=== PATIENT | female | born 1945 | race Caucasian/White ===

== ENCOUNTER 2016-11-23 10:44 | Inpatient (IN) ==
--- NOTE | 2016-11-23 09:36 | Discharge Summary ---
Date of Encounter: 11/28/16 Time of Encounter: 13:54 - Discharge Diagnosis (1) Aseptic loosening of prosthetic knee Priority: Primary Status: Acute Qualifiers: Encounter type: subsequent encounter Qualified Code(s): T84.038D - Mechanical loosening of other internal prosthetic joint, subsequent encounter; Z96.659 - Presence of unspecified artificial knee joint (2) Hypertension Priority: Secondary Status: Acute Qualifiers: Hypertension type: unspecified secondary hypertension Qualified Code(s): I15.9 - Secondary hypertension, unspecified; I15 - Secondary hypertension (3) Seizures Priority: Secondary Status: Chronic - Discharge Medications Home Medications: Aspirin Enteric Coated [Aspirin EC] 325 mg PO BID #20 tablet.dr 11/23/16 [Rx] Atorvastatin [Lipitor] 40 mg PO HS 11/23/16 [History] Esomeprazole Magnesium [Nexium] 40 mg PO DAILY 11/23/16 [History] Gabapentin [Neurontin] 300 mg PO TID 11/23/16 [History] Lisinopril [Zestril] 20 mg PO DAILY 11/23/16 [History] Loratadine [Claritin] 10 mg PO DAILY 11/23/16 [History] Metoprolol [Lopressor] 12.5 mg PO BID 11/23/16 [History] Montelukast [Singulair] 10 mg PO DAILY 11/23/16 [History] OxyCODONE Immed Rel [Roxicodone 5 MG] 5 mg PO Q4HR PRN #24 tablet 11/23/16 [Rx] Phenytoin ER [Dilantin ER] 100 mg PO TID 11/23/16 [History] Potassium Chloride [K-Tab ER] 10 meq PO DAILY 11/23/16 [History] Triamterene/HCTZ 37.5/25mg [Dyazide] 1 each PO DAILY 11/23/16 [History] Venlafaxine XR (24 HR) [Effexor XR] 75 mg PO DAILY 11/23/16 [History] Allergies/Adverse Reactions: Allergies acetaminophen [From Darvocet-N 100] Adverse Reaction (Verified 11/23/16 12:21) Weakness propoxyphene [From Darvocet-N 100] Adverse Reaction (Verified 11/23/16 12:21) Weakness Primary care physician: Rich Rojas - Patient Status Disposition: Home Health Service Condition: Good Functional capacity at discharge: uses cane/walker Overall status at discharge: patient is progressing back to baseline - Discharge Instructions Follow Up With: Benjamin Licona CNP [Primary Care Provider] - Mili Last PAC [Physician Digging Machine Operator] - 11/30/16 11:15 am Additional Instructions: Discharge Instructions: Total Knee Replacement Please call [facility] ([phone]), your Primary Care Physician, or report to the Emergency Room if you have any of the following symptoms: Nausea, vomiting, fever greater that 101.5, swelling, chest pain, shortness of breath, increased pain/redness/drainage/odor for your incision site, numbness/ tingling, or any other concerning symptoms. ACTIVITY:Weight-bearing as tolerated. You may progress off support (crutches or walker) as tolerated. MEDICATIONS: Upon discharge resume your home medications. Take all the medications as prescribed. Take a stool softener if taking narcotic pain medications. Stool softeners are only effective if you drink enough fluids. Drink 6-8 glass of water or fluids a day, unless this is not allowed for another health problem. Despite using stool softeners, if you haven't had a bowel movement in 3 days, please switch to a gentle laxative. Gentle laxatives are sold over the counter. You should have a bowel movement within 24 hours, if not call the office. You will be discharged from the hospital with a prescription for pain medication. You are encouraged to decrease the use of narcotic pain medication as tolerated. Should you require a refill, please call the office. [facility] prescribes narcotic pain medication for only 4-6 weeks after surgery. If you require pain medication beyond this time period, you may be referred to your Primary Care Physician or to the Pain Clinic for further evaluation. Plan ahead for refills on pain medication as many narcotics either need to be picked up at the office or mailed. It is best to call 48-72 hours in advance of needing a prescription refill so you don't run out of medication. To help control the post-operative pain, you may take NSAIDs (Aleve,Advil, Motrin, Ibuprofen, Naprosyn) or Tylenol as prescribed on the bottle in addition to the pain medication. ANTICOAGULATION (blood thinners): Continue your Aspirin, Lovenox or Coumadin as prescribed to help prevent a blood clot in the leg or in the lungs. As long as your incision remains dry and you tolerate the NSAIDs (Aleve, Advil, Motrin, ibuprofen, naprosyn), it is OK to use the NSAIDS while you are taking your anticoagulation medication. Should your incision start to drain, stop the NSAID and contact our office. Common symptoms of blood clot in the legs include: localized pain, swelling, calf tenderness, redness or discoloration of the skin. Blood clot in the lung symptoms include: shortness of breath, rapid pulse, sweating, and chest pain that worsens with deep breathing, coughing up blood, lightheadedness, feelings of anxiety. If you experience any of these symptoms notify your physician immediately, go to the emergency room, or if having trouble breathing, call 911. WOUND CARE: Leave the dressing on until followup appointment. Contact home health for a dressing change if it becomes saturated greater than 50%. Do not get the dressing wet at anytime. Wash your hands with antibacterial soap, rinse and dry prior to any wound care. If you have dorothy the visiting nurse or rehab facility can remove the stapes 10-14 days after surgery and place steri- strips across the wound. Leave the steri-strips in place until they fall off on their won. You may let water from the shower run on top of the steri-strips. If you do not have a visiting nurse or rehab facility, you will need to return to the office at 10-14 days for the dorothy to be removed. If you have itching or redness around the dressing call the office. FOLLOW-UP: Please follow up with your surgeon in the orthopedic clinic in 4 weeks from the day of surgery. If you have dorothy that need to be removed, you will need to come back to the office in 10-14 days from the day of surgery. - Hospital Course Hospital course: Ms. Zaman is a 71 year old female The patient had an uneventful postoperative course. They received antibiotics and physical therapy and were discharged in stable condition. There will follow -up in the office in 2 weeks. Aspirin DVT prophylaxis - Time Spent with Patient Total time spent providing and/or coordinating discharge services:
--- NOTE | 2016-11-23 10:57 | Anesthesia Evaluation PreOp ---
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 11/23/16 [Rx] OxyCODONE Immed Rel [Roxicodone 5 MG] 5 mg PO Q4HR PRN #24 tablet 11/23/16 [Rx] Allergies No Known Allergies Allergy (Unverified 11/21/16 10:07) - Meds/Allergy Pre-op Review Medications Reviewed: Yes Allergies Reviewed: Yes Beta Blockers on Current Med List: Yes If Beta Blockers taken, Date/Time (Last Dose taken): 11/23/2016 at 0800 Anesthesia Results - Labs Laboratory Tests 11/21/16 11/21/16 11/21/16 10:07 10:07 10:07 WBC 5.6 Hgb 11.4 L Hct 35.0 L Plt Count 215 PT 11.4 INR 1.1 APTT 25.9 L Sodium 139 Potassium 4.2 BUN 18 Creatinine 1.69 H - Imaging EKG: report reviewed (11/21/2016 SB, low QRS voltage in precordial leads) Anesthesia Exam O2 Sat Height 1.55 m Height 1.55 m Weight 74.843 kg Weight 74.843 kg O2 Sat by Pulse Oximetry 96 Vital Signs Temp Pulse Resp BP Pulse Ox 98.0 F 61 18 110/58 96 11/23/16 11:38 11/23/16 11:38 11/23/16 11:38 11/23/16 11:38 11/23/16 11:38 Height: 5'1'' Weight: 165 lbs NPO (# of Hours): 8 Pain Scale: 0 Pain Scale Used: Numeric (1 - 10) - HEENT Pupil (Motor): EOMI Mallampati: II Teeth: Edentulous Denture Type: Upper: Complete, Lower: Complete Oral Opening: Greater than 3 - MANAGER IMMUNOLOGY LOC: Oriented MANAGER IMMUNOLOGY Motor: Normal RUE, Normal LUE, Normal RLE, Normal LLE, Normal Face MANAGER IMMUNOLOGY Sensory: Normal: RUE, LUE, RLE, LLE, Face - Cardiac Rhythm: Regular Murmur: Systolic - Pulmonary Breath Sounds: bilateral Clear Respiratory Effort: Symmetrical Anesthesia Assess/Plan ASA Score: 2 Modified [place] Scale for Level of Consciousness: Cooperative, oriented, and tranquil Anesthetic Plan: General, Regional Monitoring Plan: Standard Monitors Recovery Plan: PACU
--- NOTE | 2016-11-23 11:07 | History & Physical Report ---
Date of Encounter: 11/23/16 Time of Encounter: 11:07 24 Hour HP Update - Instructions Instructions: If the History and Physical is less than 30 days old and was completed prior to A.M. admission and or procedure and has NOT been updated on calendar day of procedure please complete this update prior to performing procedure. - Update Patient reports changes in Medical Condition: No Changes in examination, assessment, or condition: No Changes in Medication: No Preop tests/diagnostics Reviewed: Yes Surgery Remains Indicated: Yes Consent for Planned Operative Procedure(s) Verified: Yes - Pre-Operative Checklist Preoperative Checklist Indicated: No Prophylactic Antibiotic Ordered: Yes Is VTE Prophylaxis Indicated?: NO
[2016-11-23] MEDS ORDERED: CeFAZolin Pre 2,000 MG/100 ML 2,000 MG/100 ML BAG IVPB ONE (11:26)
[2016-11-23] MEDS ORDERED: Ringers Solution, Lactated 1,000 ML IVC SCH (11:30)
[2016-11-23] MEDS ORDERED: ROPIVACAINE HCL/PF 0.5% 30 ML VIAL ONE (11:44)
[2016-11-23] MEDS ORDERED: Lidocaine -MPF 4% 5 ML AMPUL ONE (12:00)
[2016-11-23] MEDS ORDERED: Ondansetron 4 MG/2 ML VIAL ONE (12:00)
[2016-11-23] MEDS ORDERED: *HR* Propofol 200 MG/20 ML VIAL IVP ONE (12:00)
[2016-11-23] MEDS ORDERED: *HR* FentaNYL (PF) 100 MCG/2 ML VIAL ONE (12:00)
[2016-11-23] MEDS ORDERED: Lidocaine -MPF 2% 2 ML VIAL ONE (12:00)
[2016-11-23] MEDS ORDERED: Dexamethasone 4 MG/ML VIAL ONE (12:00)
[2016-11-23] MEDS ORDERED: *HR* Succinylcholine 200 MG/10 ML VIAL IVP ONE (12:00)
[2016-11-23] MEDS ORDERED: *HR* Midazolam HCl 2 MG/2 ML VIAL ONE (12:00)
--- NOTE | 2016-11-23 12:36 | Anesthesia Procedures ---
Date of Encounter: 11/23/16 Time of Encounter: 12:20 Procedures: Anesthesia - Nerve Block Procedure Date: 11/23/16 Time: 12:20 Allergies/Adv Reactions: tylenol propoxyphene Pre-op Diagnosis: arthritis Surgical Procedure: right total knee arthroplasty Checklist: Correct Patient Identifier, Correct procedure, History checked Correct side: Right Blood Thinner: No Monitor Applied: EKG, BP, Pulse Oximetry Supplemental Oxygen via Nasal Cannula (L/min): 2 Sedation: Versed (mg): 1 Sedation: Fentanyl (mcg): 100 Indication: Post Op Analgesia Pre-op Neuro Deficits: No Block Type: Femoral, Other (ipack ) Catheter placed: No Sterile Technique: Yes Ultrasound used: Yes Anatomy identified: Yes Visual spread of Local: Yes Neuro Stimulation: Yes Nerve Stimulator Range: 0.2 - 0.4 mA Blood on Needle Aspiration: No Smooth Injection of Local: Yes Pain with Injection of Local: No Prep: Chlorhexadine Needle: 22 x 50 mm Stimuplex Local: Ropivacaine (0.5% ropi with 8mg decadron ), Other (bupiv 0.25% ipack ) Volume (cc): 60 Number of Attempts: 1 Complications: None/effective block Vitals: Vital Signs - Last 8 Hours Temp Pulse Resp BP Pulse Ox 11/23/16 12:24 63 16 101/57 100 11/23/16 12:10 64 16 129/71 96 11/23/16 11:38 98.0 F 61 18 110/58 96 11/23/16 11:27 98 F 59 18 110/58 96 Intake and Output 11/22/16 11/23/16 11/23/16 23:59 07:59 15:59 Other: Weight 74.843 kg Patient Weight 11/23/16 23:59 Weight 74.843 kg Comments: per dr. carr
[2016-11-23] MEDS ORDERED: *HR* HYDROmorphone (PF) 1 MG/ML SYRINGE IVP PRN ×2 (12:37→15:07)
[2016-11-23] MEDS ORDERED: Ondansetron 4 MG/2 ML VIAL IVP ONE (12:37)
[2016-11-23] MEDS ORDERED: *HR* Promethazine 25 MG/ML VIAL IVP PRN (12:37)
--- NOTE | 2016-11-23 13:54 | Orthopedic Operative Note ---
Date of procedure: 11/23/16 Pre-op diagnosis: Aseptic loosening right total knee Post-op diagnosis: same Procedure: Procedure: Right revision total knee Estimated blood loss: 400 cc Hardware: Arthrex 3 femur tibia size 3, 12 x 50 stem, 18PS Lise Exam Under anesthesia: Loss of full extension 20 degrees full flexion Procedural Notes: Loosening of femoral and tibial components Operative procedure: The patient was brought to the operating room and placed on the operating room table. After general anesthesia was administered the operative knee was examined. Findings were noted in the exam under anesthesia. The operative extremity was prepped and draped in sterile surgical fashion. The patient received IV antibiotics prior to skin incision. A standard midline incision was made centered over the patella. The incision was made through the skin and subcutaneous tissue through the old incision. A medial parapatellar tendon approach was performed. Care was taken to preserve tissue along the medial aspect of the patella. And to protect the patella tendon. The deep MCL was released off the medial tibia. The infra patella fat pad was excised. Cultures were obtained as well as Gram stain. The knee was brought into flexion the tibial poly-was removed. The interface between the femoral component and the patient's femur was disrupted with an osteotome and oscillating saw. This was done with minimal effort was consistent with a loose femur. Attention was then turned to the tibial component. The tibial component was loose and removed with an osteotome without any bone loss. Tibia was recut just below the level of the cement mantle. The tibia was prepared first sized to a 3 reamed to a 112x50 stem. The finishing punch was seated. Trial had good fit and fixation. The entry hole was made for the entry guide for the femur set in 6 degrees of valgus. Distal femoral cut was made sized to a 3 finishing guide was seated lug holes were drilled and trochlear was reamed. Trial reduction revealed full extension and full flexion no varus valgus instability with an 18 PS Lise. Trial components removed knee sat for 2 minutes with a Betadine saline solution. It was irrigated out with pulse irrigation. Components were assembled on the back table. The tibia cemented. Followed by the femur, The 18 PS Lise was seated and secure. The had full flexion and full extension and excellent patella tracking no varus valgus instability. After the cement hardened the knee was irrigated out again. The knee was taken through a range of motion had excellent patella tracking. The extensor mechanism was closed with a running #2 Fiberwire suture and a running #2 PDS suture. The deep tissue was irrigated and closed deep with #1 PDS suture superficially with 0 PDS suture. The skin was closed with Dermabond and skin dorothy. The patient was placed in a sterile dressing and postoperative brace. They were extubated and transferred to recovery room in stable condition. Anesthesia: GETA Surgeon: Musa Lizama Condition: stable Disposition: PACU
[2016-11-23 14:28] LABS: Hematocrit 34.9 % (35.3-44.9); Hemoglobin 11.5 g/dL (11.5-15.4)
--- NOTE | 2016-11-23 14:30 | Anesthesia Evaluation Post Op ---
Date of Encounter: 11/23/16 Time of Encounter: 14:29 - Vital Signs Vital Signs: Vital Signs/O2 Sat, Most Current Temp Pulse Resp BP Pulse Ox 97.1 F L 59 14 152/73 99 11/23/16 13:56 11/23/16 14:16 11/23/16 14:16 11/23/16 14:16 11/23/16 14:16 - Lungs Lungs: Clear Ascult./Percussion - Airway Airway: Non-obstructed - Cardiovascular Regular Rate - Mental Status Mental Status: Alert & Oriented, Answers Appropriately - Pain Pain Scale: 3 Pain Scale used: Numeric (1 - 10) - Nausea Vomiting Nausea Vomiting: Not Present - Hydration Hydration: Tolerates oral liquids, Has not voided - Discharge PostOp Status: Transfer Patient to floor
[2016-11-23] MEDS ORDERED: Sennosides 8.6 MG TABLET PO PRN (15:07)
[2016-11-23] MEDS ORDERED: MOM Conc 10 ML UD.LIQ PO PRN (15:07)
[2016-11-23] MEDS ORDERED: Temazepam 15 MG CAPSULE PO PRN (15:07)
[2016-11-23] MEDS ORDERED: *HR* OxyCODONE Immed Rel 5 MG TABLET PO PRN (15:07)
[2016-11-23] MEDS ORDERED: Naloxone 0.4 MG/ML INJ IVP PRN (15:07)
[2016-11-23] MEDS: *HR* OxyCODONE Immed Rel 5 MG TABLET PO PRN (15:28)
[2016-11-23] MEDS: ceFAZolin 2,000 MG in D5% in Water 100 ML IVPB SCH ×2 (15:53→23:35)
[2016-11-23] MEDS: Ringers Solution, Lactated 1,000 ML IVC SCH (17:34)
[2016-11-23] MEDS: *HR* Enoxaparin 30 MG/0.3 ML SYRINGE SQ SCH (17:34)
[2016-11-23] MEDS ORDERED: *HR* Enoxaparin 30 MG/0.3 ML SYRINGE SQ SCH (18:00)
[2016-11-23] MEDS: Gabapentin 300 MG CAPSULE PO SCH (23:30)
[2016-11-24 04:45] LABS: Hematocrit 27.3 % (35.3-44.9)
[2016-11-24 04:47] LABS: Hemoglobin 9.3 g/dL (11.5-15.4)
[2016-11-24 05:11] LABS: Calcium 8.1 mg/dL (8.6-10.8); Potassium 4.4 mEq/L (3.5-4.5)
[2016-11-24] MEDS: *HR* OxyCODONE Immed Rel 5 MG TABLET PO PRN ×3 (05:14→22:27)
[2016-11-24] MEDS: Ringers Solution, Lactated 1,000 ML IVC SCH (06:20)
[2016-11-24] MEDS ORDERED: Venlafaxine XR (24 HR) 75 MG CAP.ER.24H PO SCH (09:00)
[2016-11-24] MEDS: Gabapentin 300 MG CAPSULE PO SCH ×3 (10:03→20:21)
[2016-11-24] MEDS: Lisinopril 20 MG TABLET PO SCH (10:03)
[2016-11-24] MEDS: Loratadine 10 MG TABLET PO SCH (10:03)
[2016-11-24] MEDS: Venlafaxine XR (24 HR) 75 MG CAP.ER.24H PO SCH (10:04)
--- NOTE | 2016-11-24 10:29 | Orthopedics Progress Note ---
Date of Encounter: 11/24/16 Time of Encounter: 10:28 Subjective Interval history: S: No complaints. Pain well controlled. O: Afeb, VSS Right knee dressing is clean, dry, intact. NV intact distally. Calf soft. A: Post op day 1 after revision right total knee arthroplasty P: Resume post op care Objective Vital signs: Vital Signs Temp Pulse Resp BP Pulse Ox 11/24/16 07:05 97.9 F 68 18 93/47 94 11/24/16 05:00 70 18 105/65 95 11/24/16 01:00 98.9 F 69 16 150/73 98 11/23/16 20:12 97.9 F 65 14 115/68 97 11/23/16 17:42 97.4 F L 68 16 133/68 99 11/23/16 16:48 97.7 F 59 16 124/69 99 11/23/16 15:54 97.7 F 60 15 161/80 97 11/23/16 15:20 95.4 F L 58 14 144/58 98 11/23/16 14:26 97.1 F L 60 16 157/80 400 11/23/16 14:16 59 14 152/73 99 11/23/16 14:06 55 16 145/74 100 11/23/16 13:56 97.1 F L 60 16 140/79 100 11/23/16 12:24 63 16 101/57 100 11/23/16 12:10 64 16 129/71 96 11/23/16 11:38 98.0 F 61 18 110/58 96 11/23/16 11:27 98 F 59 18 110/58 96 Intake and Output 11/23/16 11/24/16 11/24/16 23:59 07:59 15:59 Intake Total 100 / 100 1120 / 1120 Output Total 0 / 0 Balance 100 / 100 1120 / 1120 Intake: IV Fluids 100 / 100 1000 / 1000 Lactated Ringers 1,000 ML 1000 / 1000 @ 75 mls/hr IVC .[id number] [facility] Rx#:[id number] Ancef 2,000 MG In 100 / 100 Dextrose 5% 100 ML @ 200 mls/hr IVPB Q8HR [facility] Rx#: [id number] Oral 120 / 120 Output: Urine 0 / 0 Other: # Voids 2 - Labs CBC & BMP: 11/24/16 04:31 11/24/16 04:31 Labs: Abnormal lab results Hgb 9.3 g/dL (11.5-15.4) L D 11/24/16 04:31 Hct 27.3 % (35.3-44.9) L 11/24/16 04:31 Creatinine 1.58 mg/dL (0.57-1.11) H 11/24/16 04:31 Est GFR ( Amer) 39 (> 60) L 11/24/16 04:31 Est GFR (Non-Af Amer) 32 (> 60) L 11/24/16 04:31 Glucose 101 mg/dL (70-99) H 11/24/16 04:31 Calcium 8.1 mg/dL (8.6-10.8) L 11/24/16 04:31 - VTE Documentation of Mechanical Device: Venous foot pump, device Consult Discharge Plan - Plan Referrals: Benjamin Licona CNP [Primary Care Provider] -
[2016-11-24] MEDS: *HR* Enoxaparin 30 MG/0.3 ML SYRINGE SQ SCH (16:39)
[2016-11-25] MEDS: *HR* OxyCODONE Immed Rel 5 MG TABLET PO PRN ×2 (02:46→19:58)
[2016-11-25] MEDS: Ondansetron 4 MG/2 ML VIAL IVP PRN ×2 (02:46→09:18)
[2016-11-25 04:26] LABS: Hematocrit 28.6 % (35.3-44.9); Hemoglobin 9.4 g/dL (11.5-15.4)
[2016-11-25 04:55] LABS: Calcium 8.5 mg/dL (8.6-10.8); Potassium 3.7 mEq/L (3.5-4.5)
[2016-11-25] MEDS: Venlafaxine XR (24 HR) 75 MG CAP.ER.24H PO SCH (09:18)
[2016-11-25] MEDS: Gabapentin 300 MG CAPSULE PO SCH ×3 (09:18→19:58)
[2016-11-25] MEDS: Loratadine 10 MG TABLET PO SCH (09:18)
[2016-11-25] MEDS: Lisinopril 20 MG TABLET PO SCH (09:19)
--- NOTE | 2016-11-25 10:57 | Orthopedics Progress Note ---
Date of Encounter: 11/25/16 Time of Encounter: 10:56 Subjective Interval history: S: No complaints. Pain well controlled. O: Afeb, VSS Right knee dressing is clean, dry, intact. NV intact distally. Calf soft. A: Post op day 2 after revision right total knee arthroplasty P: Resume post op care Objective Vital signs: Vital Signs Temp Pulse Resp BP Pulse Ox 11/25/16 06:53 98.7 F 79 18 151/75 93 11/25/16 01:06 98.8 F 79 16 156/82 92 11/24/16 20:00 98.7 F 97 20 130/78 97 11/24/16 15:45 98.7 F 88 16 108/64 97 11/24/16 11:31 98.2 F 86 18 111/69 96 Intake and Output 11/24/16 11/25/16 11/25/16 23:59 07:59 15:59 Intake Total 1170 / 1170 300 / 300 Output Total 1500 / 1500 Balance -330 / -330 300 / 300 Intake: IV Fluids 850 / 850 Lactated Ringers 1,000 ML 850 / 850 @ 75 mls/hr IVC .[id number] [facility] Rx#:[id number] Oral 320 / 320 300 / 300 Output: Urine 1500 / 1500 Other: Meal Dinner Percent of Meal Consumed 100% Stool Size Smear Stool Consistency soft # Voids 2 1 # Bowel Movements 1 - Labs CBC & BMP: 11/25/16 03:54 11/25/16 03:54 Labs: Abnormal lab results Hgb 9.4 g/dL (11.5-15.4) L 11/25/16 03:54 Hct 28.6 % (35.3-44.9) L 11/25/16 03:54 Est GFR (Non-Af Amer) 49 (> 60) L 11/25/16 03:54 Glucose 121 mg/dL (70-99) H 11/25/16 03:54 Calcium 8.5 mg/dL (8.6-10.8) L 11/25/16 03:54 - VTE Documentation of Mechanical Device: Venous foot pump, device Consult Discharge Plan - Plan Referrals: Benjamin Licona CNP [Primary Care Provider] -
[2016-11-25] MEDS: *HR* Enoxaparin 30 MG/0.3 ML SYRINGE SQ SCH (17:54)
[2016-11-26] MEDS: *HR* OxyCODONE Immed Rel 5 MG TABLET PO PRN (05:03)
[2016-11-26] MEDS: Lisinopril 20 MG TABLET PO SCH (09:10)
[2016-11-26 09:34] LABS: Hematocrit 28.1 % (35.3-44.9); Hemoglobin 9.1 g/dL (11.5-15.4)
[2016-11-26] MEDS: Gabapentin 300 MG CAPSULE PO SCH (10:09)
[2016-11-26] MEDS: Loratadine 10 MG TABLET PO SCH (10:09)
[2016-11-26] MEDS: Venlafaxine XR (24 HR) 75 MG CAP.ER.24H PO SCH (10:09)
[2016-11-26 11:48] VITALS: BP 109/61
== END 2016-11-26 14:09 | disposition home health service (06) | DRG 468 ==
LOC: SAMDAY 10:44 → 3NENU 14:43
PROVIDERS: ADMIT Orthopaedic Surgery; ATTEND Orthopaedic Surgery

== ENCOUNTER 2018-03-03 09:06 | Inpatient (IN) ==
--- NOTE | 2018-03-02 21:34 | Discharge Summary ---
<Musa Lizama - Last Filed: 03/03/18 11:08> Orders not resulted at time of discharge: Pending orders 03/03/18 00:01 XR knee LT limited 1-2V [XR] Routine H/H [Hemoglobin and Hematocrit] [HEME] Routine 03/03/18 07:59 US anesthesia pain block [US] Routine Date of Encounter: 03/03/18 - Discharge Diagnosis (1) Arthritis of knee, left Priority: Primary Status: Chronic (2) Status post total knee replacement, left Priority: Primary Status: Acute (3) Decreased GFR Priority: Secondary Status: Chronic (4) HLD (hyperlipidemia) Priority: Secondary Status: Chronic Qualifiers: Hyperlipidemia type: mixed hyperlipidemia Qualified Code(s): E78.2 - Mixed hyperlipidemia (5) Hypertension Priority: Secondary Status: Chronic Qualifiers: Hypertension type: essential hypertension Qualified Code(s): I10 - Essential (primary) hypertension (6) YADY (obstructive sleep apnea) Priority: Secondary Status: Chronic (7) Seizure disorder Priority: Secondary Status: Chronic - Hospital Course Hospital course: Ms. Zaman is a 73 year old female - Time Spent with Patient Total time spent providing and/or coordinating discharge services: - Discharge Medications Home Medications: Atorvastatin [Lipitor] 40 mg PO HS 11/23/16 [History] Esomeprazole Magnesium [Nexium] 40 mg PO DAILY 11/23/16 [History] Gabapentin [Neurontin] 300 mg PO TID 11/23/16 [History] Lisinopril [Zestril] 20 mg PO DAILY 11/23/16 [History] Loratadine [Claritin] 10 mg PO DAILY 11/23/16 [History] Metoprolol [Lopressor] 12.5 mg PO BID 11/23/16 [History] Montelukast [Singulair] 10 mg PO DAILY 11/23/16 [History] Phenytoin ER [Dilantin ER] 100 mg PO TID 11/23/16 [History] Potassium Chloride [K-Tab ER] 20 meq PO DAILY 11/23/16 [History] Triamterene/HCTZ 37.5/25mg [Dyazide] 1 each PO DAILY 11/23/16 [History] Venlafaxine XR (24 HR) [Effexor XR] 75 mg PO DAILY 11/23/16 [History] Aspirin Enteric Coated [Aspirin EC] 325 mg PO BID #20 tablet. 03/02/18 [Rx] OxyCODONE Immed Rel [Roxicodone 5 MG] 5 mg PO Q6H PRN 7 Days #28 tablet [Rx] Allopurinol [Zyloprim 100 MG] 100 mg PO DAILY 03/03/18 [History] Aspirin [Lo-Dose Aspirin EC] 81 mg PO DAILY 03/03/18 [History] Cholecalciferol (D-3) [Vitamin D] 1,000 unit PO DAILY 03/03/18 [History] Allergies/Adverse Reactions: 3 Allergy/AdvReac Type Severity Reaction Status Date / Time acetaminophen AdvReac Weakness Verified 03/03/18 09:55 [From Darvocet-N 100] propoxyphene AdvReac Weakness Verified 03/03/18 09:55 [From Darvocet-N 100] Primary care physician: Enmanuel Licona CNP - Patient Status Disposition: Home Health Service Condition: Good - Discharge Instructions Instructions: Total Knee Replacement (DC), Precautions after Total Joint Replacement Surgery (DC) Follow Up With: Benjamin Licona CNP [Primary Care Provider] - <Laila Combs - Last Filed: 03/05/18 12:45> - NOTES TO OUTPATIENT PROVIDER Notes to Outpatient Provider: Will need to have potassium rechecked in 1 week. Orders not resulted at time of discharge: Pending orders 03/03/18 07:59 US anesthesia pain block [US] Routine Date of Encounter: 03/05/18 Time of Encounter: 12:30 - Discharge Diagnosis (1) Status post total knee replacement, left Priority: Primary Status: Acute (2) Aseptic loosening of prosthetic knee Priority: Secondary Status: Acute Qualifiers: Encounter type: subsequent encounter Qualified Code(s): T84.038D - Mechanical loosening of other internal prosthetic joint, subsequent encounter; Z96.659 - Presence of unspecified artificial knee joint (3) Arthritis of knee, left Priority: Secondary Status: Chronic (4) Decreased GFR Priority: Secondary Status: Chronic (5) HLD (hyperlipidemia) Priority: Secondary Status: Chronic Qualifiers: Hyperlipidemia type: mixed hyperlipidemia Qualified Code(s): E78.2 - Mixed hyperlipidemia (6) Hypertension Priority: Secondary Status: Chronic Qualifiers: Hypertension type: essential hypertension Qualified Code(s): I10 - Essential (primary) hypertension (7) YADY (obstructive sleep apnea) Priority: Secondary Status: Chronic (8) Seizure disorder Priority: Secondary Status: Chronic (9) Seizures Priority: Secondary Status: Chronic (10) Acute blood loss anemia Priority: Secondary Status: Acute (11) Hypokalemia Priority: Secondary Status: Acute - Hospital Course Hospital course: Ms. Zaman is a 73 year old female - Time Spent with Patient Total time spent providing and/or coordinating discharge services: Date of admission: 03/03/18 14:34 Primary care physician: Enmanuel Licona CNP Consults: 03/03/18 14:07 Consult to Occupational Therapy [CONS] Routine Comment: Evaluate, develop and implement POC Reason for Consult: post knee surgery Does patient have active BEDREST order?: No Is patient medically & hemodynamically stable?: Yes Consult to Orthopedic Navigator [CONS] [CONS] Routine Consult to Physical Therapy [CONS] Routine Comment: Evaluate, develop and impliment POC Reason for Consult: post knee surgery Does patient have active BEDREST order?: No Is patient medically & hemodynamically stable?: Yes Consult to Residential Sales Executive [CONS] Routine Reason for SW Consult: post op joint replacement RT Post Op Consult [CONS] Routine Labs on day of discharge: Labs from last 24 hours 03/05/18 03/05/18 03/03/18 01:48 01:48 18:11 Hgb 9.6 L D Hct 27.6 L Sodium 138 Potassium 3.0 L Chloride 109 H Carbon Dioxide 23 BUN 15 Creatinine 1.12 Est GFR ( Amer) 58 L Est GFR (Non-Af Amer) 48 L BUN/Creatinine Ratio 13 Glucose 119 H Calculated Osmolality 288 Calcium 7.9 L Blood Type B POSITIVE Antibody Screen NEGATIVE Crossmatch See Detail - Impressions ITS Impressions Knee X-Ray 03/03/18 00:01 IMPRESSION: Postsurgical changes involving a left total joint knee replacement. D/ / Zeyad Delgadillo MD / Zeyad Delgadillo MD Interpreting Provider: Zeyad Delgadillo MD <Mili Last L - Last Filed: 03/05/18 15:46> Date of Encounter: 03/05/18 Time of Encounter: 15:46 - Discharge Diagnosis (1) Arthritis of knee, left Priority: Primary Status: Chronic (2) Status post total knee replacement, left Priority: Primary Status: Acute (3) YADY (obstructive sleep apnea) Priority: Secondary Status: Chronic (4) Seizure disorder Priority: Secondary Status: Chronic (5) HLD (hyperlipidemia) Priority: Secondary Status: Chronic Qualifiers: Hyperlipidemia type: mixed hyperlipidemia Qualified Code(s): E78.2 - Mixed hyperlipidemia (6) Decreased GFR Priority: Secondary Status: Chronic (7) Hypertension Priority: Secondary Status: Chronic Qualifiers: Hypertension type: essential hypertension Qualified Code(s): I10 - Essential (primary) hypertension - Hospital Course Hospital course: Ms. Zaman is a 73 year old female - Time Spent with Patient Total time spent providing and/or coordinating discharge services: Primary care physician: Enmanuel Licona CNP - Patient Status Functional capacity at discharge: uses cane/walker Overall status at discharge: patient is back to baseline
[2018-03-03] MEDS ORDERED: CeFAZolin Syr 2,000MG/20 ML 2,000 MG/20 ML SYRINGE IVPB ONE (09:36)
--- NOTE | 2018-03-03 09:39 | History & Physical Report ---
Date of Encounter: 03/03/18 Time of Encounter: 09:39 24 Hour HP Update - Instructions Instructions: If the History and Physical is less than 30 days old and was completed prior to A.M. admission and or procedure and has NOT been updated on calendar day of procedure please complete this update prior to performing procedure. - Update Patient reports changes in Medical Condition: No Changes in examination, assessment, or condition: No Changes in Medication: No Preop tests/diagnostics Reviewed: Yes Surgery Remains Indicated: Yes Consent for Planned Operative Procedure(s) Verified: Yes - Pre-Operative Checklist Preoperative Checklist Indicated: No Prophylactic Antibiotic Ordered: Yes Is VTE Prophylaxis Indicated?: Yes
[2018-03-03] MEDS ORDERED: Ringers Solution, Lactated 1,000 ML IVC SCH (09:45)
[2018-03-03] MEDS ORDERED: *HR* Succinylcholine 200 MG/10 ML VIAL IVP ONE (10:24)
[2018-03-03] MEDS ORDERED: Ketorolac 30 MG/ML VIAL ONE (10:24)
[2018-03-03] MEDS ORDERED: *HR* Midazolam HCl 2 MG/2 ML VIAL ONE (10:24)
[2018-03-03] MEDS ORDERED: *HR* FentaNYL (PF) 100 MCG/2 ML VIAL ONE (10:24)
[2018-03-03] MEDS ORDERED: *HR* Propofol 200 MG/20 ML VIAL IVP ONE (10:24)
[2018-03-03] MEDS ORDERED: Dexamethasone 4 MG/ML VIAL ONE (10:24)
[2018-03-03] MEDS ORDERED: Lidocaine -MPF 4% 5 ML AMPUL ONE (10:24)
[2018-03-03] MEDS ORDERED: Ondansetron 4 MG/2 ML VIAL ONE (10:24)
[2018-03-03] MEDS ORDERED: Lidocaine -MPF 2% 2 ML VIAL ONE (10:24)
--- NOTE | 2018-03-03 10:30 | Anesthesia Evaluation PreOp ---
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: Seizures (Last seizure years ago) Other Medical History: Renal (CKD2 vs CKD3), GERD (Controlled), Other (Anemia, unknown cause) Anesthesia History: No Prior Anesthetic Complications, Past Anesthesia Alcohol Use: none Drug use: none Medications and Allergies Atorvastatin [Lipitor] 40 mg PO HS 11/23/16 [History] Esomeprazole Magnesium [Nexium] 40 mg PO DAILY 11/23/16 [History] Gabapentin [Neurontin] 300 mg PO TID 11/23/16 [History] Lisinopril [Zestril] 20 mg PO DAILY 11/23/16 [History] Loratadine [Claritin] 10 mg PO DAILY 11/23/16 [History] Metoprolol [Lopressor] 12.5 mg PO BID 11/23/16 [History] Montelukast [Singulair] 10 mg PO DAILY 11/23/16 [History] Phenytoin ER [Dilantin ER] 100 mg PO TID 11/23/16 [History] Potassium Chloride [K-Tab ER] 20 meq PO DAILY 11/23/16 [History] Triamterene/HCTZ 37.5/25mg [Dyazide] 1 each PO DAILY 11/23/16 [History] Venlafaxine XR (24 HR) [Effexor XR] 75 mg PO DAILY 11/23/16 [History] Aspirin Enteric Coated [Aspirin EC] 325 mg PO BID #20 tablet. 03/02/18 [Rx] OxyCODONE Immed Rel [Roxicodone 5 MG] 5 mg PO Q6H PRN 7 Days #28 tablet [Rx] Allopurinol [Zyloprim 100 MG] 100 mg PO DAILY 03/03/18 [History] Aspirin [Lo-Dose Aspirin EC] 81 mg PO DAILY 03/03/18 [History] Cholecalciferol (D-3) [Vitamin D] 1,000 unit PO DAILY 03/03/18 [History] 3 Allergy/AdvReac Type Severity Reaction Status Date / Time acetaminophen AdvReac Weakness Verified 03/03/18 09:55 [From Darvocet-N 100] propoxyphene AdvReac Weakness Verified 03/03/18 09:55 [From Darvocet-N 100] - Meds/Allergy Pre-op Review Medications Reviewed: Yes Allergies Reviewed: Yes Beta Blockers on Current Med List: Yes If Beta Blockers taken, Date/Time (Last Dose taken): 2100 Anesthesia Results - Labs Laboratory Tests 02/27/18 02/27/18 02/27/18 15:45 15:45 15:45 Hgb 10.8 L Hct 32.8 L Plt Count 198 PT 11.4 INR 1.0 APTT 29.0 Sodium 138 Potassium 3.6 Chloride 109 H Carbon Dioxide 23 Creatinine 1.45 H Est GFR (Non-Af Amer) 35 L - Imaging EKG: report reviewed (SINUS BRADYCARDIA LOW QRS VOLTAGE IN PRECORDIAL LEADS INCOMPLETE RIGHT BUNDLE BRANCH BLOCK POSSIBLE ANTERIOR MYOCARDIAL INFARCTION, PROBABLY OLD) Anesthesia Exam O2 Sat Height 1.5 m Weight 64.41 kg BMI 29 Vital Signs Temp Pulse Resp BP Pulse Ox 98.6 F 62 18 120/67 98 03/03/18 09:39 03/03/18 09:39 03/03/18 09:39 03/03/18 09:39 03/03/18 09:39 NPO (# of Hours): 5.5 hrs (black coffee at 0500) - HEENT Pupil (Motor): Pupils equal Mallampati: II Teeth: Edentulous Denture Type: Upper: Complete, Lower: Complete Oral Opening: Greater than 3 - PLASTIC EYE TECHNICIAN LOC: Oriented PLASTIC EYE TECHNICIAN Motor: Normal RUE, Normal LUE, Normal RLE, Normal LLE, Normal Face - Cardiac Rhythm: Regular - Pulmonary Breath Sounds: bilateral Clear Respiratory Effort: Symmetrical - Additional Findings Right lower extremity edema, no pain on palpation, no pain on foot flexion. Anesthesia Assess/Plan ASA Score: 4 Modified Lizzie Scale for Level of Consciousness: Cooperative, oriented, and tranquil Anesthetic Plan: General, Regional (For postoperatve pain control) Monitoring Plan: Standard Monitors Recovery Plan: PACU
[2018-03-03] MEDS ORDERED: ROPIVACAINE HCL/PF 0.5% 30 ML VIAL ONE (10:35)
[2018-03-03] MEDS ORDERED: Bupivacaine/Clonidine Syringe 1 EACH SYRINGE ONE (10:39)
[2018-03-03] MEDS ORDERED: Ethanol\\Acetic Acid\\Na Ace\\Ben 1,000 ML IRRIG.SOLN IR ONE (11:01)
[2018-03-03] MEDS ORDERED: EPHEDrine 50 MG/ML VIAL ONE (11:19)
[2018-03-03] MEDS ORDERED: *HR* Promethazine 25 MG/ML VIAL IVP PRN (11:46)
[2018-03-03] MEDS ORDERED: *HR* HYDROmorphone (PF) 1 MG/ML SYRINGE IVP PRN (11:46)
[2018-03-03] MEDS ORDERED: *HR* Labetalol 20 MG/4 ML SYRINGE IVP PRN (11:46)
[2018-03-03] MEDS ORDERED: Albuterol 2.5 MG/3 ML NEBULIZER IH ONE (11:46)
--- NOTE | 2018-03-03 11:46 | Anesthesia Procedures ---
Date of Encounter: 03/03/18 Time of Encounter: 11:00 Procedures: Anesthesia - Nerve Block Procedure Date: 03/03/18 Time: 11:00 Allergies/Adv Reactions: DARVOCET Pre-op Diagnosis: LEFT TKA ARTHRITIS Surgical Procedure: LEFT TKA Checklist: Correct Patient Identifier, Correct procedure, History checked Correct side: Left Blood Thinner: No Monitor Applied: EKG, BP, Pulse Oximetry Supplemental Oxygen via Nasal Cannula (L/min): 1 Sedation: Versed (mg): 1 Sedation: Fentanyl (mcg): 100 Indication: Post Op Analgesia Pre-op Neuro Deficits: No Block Type: Femoral (IPACK ) Catheter placed: No Sterile Technique: Yes Ultrasound used: Yes Anatomy identified: Yes Visual spread of Local: Yes Neuro Stimulation: Yes Nerve Stimulator Range: 0.2 - 0.4 mA Blood on Needle Aspiration: No Smooth Injection of Local: Yes Pain with Injection of Local: No Prep: Chlorhexadine Needle: 21 x 100 mm Stimuplex Local: 0.25% Bupivicaine w/Clonidine 20 mcg/cc (IPACK ), Ropivacaine Volume (cc): 30 Number of Attempts: 1 Complications: None/effective block Vitals: Vital Signs - Last 8 Hours Temp Pulse Resp BP Pulse Ox 03/03/18 11:07 59 16 118/62 97 03/03/18 10:53 60 18 136/87 100 03/03/18 09:39 98.6 F 62 18 120/67 98 Intake and Output 03/02/18 03/03/18 03/03/18 23:59 07:59 15:59 Other: Weight 64.41 kg Patient Weight 03/03/18 23:59 Weight 64.41 kg Comments: PER DR. JACOBSON VSS
--- NOTE | 2018-03-03 12:04 | Orthopedic Operative Note ---
Date of procedure: 03/03/18 Pre-op diagnosis: Left knee arthritis Post-op diagnosis: same Procedure: Procedure: Left robotic-assisted Total knee replacement Estimated blood loss: 200 cc Hardware: Metal and polyethylene replacement. [place] Femur: 2 Tibia: 2 TS insert: 11 Patella: 36 Exam Under anesthesia: 7 degree flexion contracture 0 degree varus valgus as calculated by the robot full flexion and no instability Procedural Notes: Grade 4 arthritic changes all 3 compartments. Operative procedure: The patient was brought to the operating room and placed on the operating room table. After general anesthesia was administered the operative knee was examined. Findings were noted in the exam under anesthesia. The operative extremity was prepped and draped in sterile surgical fashion. The patient received IV antibiotics prior to skin incision. A standard midline incision was made centered over the patella. The incision was made through the skin and subcutaneous tissue. A medial parapatellar tendon approach was performed. Care was taken to preserve tissue along the medial aspect of the patella. And to protect the patella tendon. The deep MCL was released off the medial tibia. The infra patella fat pad was excised. The patella was everted and cut was made at the level of the insertion of the quadriceps and patella tendon. The patella was sized to a 36 the guide was seated and the lug holes are drilled. Knee was brought into flexion. Patient noted to have grade 4 arthritic changes all 3 compartments. Steinmann pins were placed in the tibia and the femur for the tibial and femoral arrays respectively. Checkpoints were also placed in the tibia and the femur for calculation purposes. The knee including the femur and the tibial registered. Osteophytes, ACL and PCL were excised at this point. Extension and flexion were assessed with a valgus stress components were adjusted on the computer to balance the knee. Femoral cuts were made first with robotic assistance, these included the anterior cut posterior cuts chamfer cuts. Tibial cut was then performed with robotic assistance as well. Bone fragments were removed, as well as the medial and lateral meniscus. The size 2 femoral guide was seated box cut was made lug holes are drilled. The size 2 tibial tray was seated and prepared with the fin cutter. Trial reduction with the 11 TS Lise revealed extension of 0 degree and 0 degree varus valgus full flexion. No varus valgus instability. Trial reduction revealed excellent patella tracking. All trial components were removed all bony surfaces were irrigated. The Tibia was seated followed by the femur, The Lise size 11 was seated and secured patella. Patient had similar findings for motion and stability. The knee was closed by the PA. The knee was then irrigated out with 2 L of pulse irrigation. The extensor mechanism was closed with #2 FiberWire suture and #2 PDS suture. The subcutaneous tissue was then irrigated and closed deep with #1 PDS suture superficially with 0 PDS suture and skin was closed with zip tie The patient was then placed in a sterile dressing and a postoperative brace extubated and transferred to recovery room in stable condition. Anesthesia: GETA Surgeon: Musa Lizama Was there an administrative personal assistant present: Yes Aircraft Inspector: Mili Last Estimated blood loss (cc): 200 Condition: stable Disposition: PACU
[2018-03-03] MEDS ORDERED: MOM Conc 10 ML UD.LIQ PO PRN (14:07)
[2018-03-03] MEDS ORDERED: traMADol 50 MG TABLET PO PRN (14:07)
[2018-03-03] MEDS ORDERED: Ondansetron 4 MG/2 ML VIAL IVP PRN (14:07)
[2018-03-03] MEDS ORDERED: Temazepam 15 MG CAPSULE PO PRN (14:07)
[2018-03-03] MEDS ORDERED: Naloxone 0.4 MG/ML INJ IVP PRN (14:07)
[2018-03-03] MEDS ORDERED: Sennosides 8.6 MG TABLET PO PRN (14:07)
[2018-03-03] MEDS ORDERED: *HR* OxyCODONE Immed Rel 5 MG TABLET PO PRN (14:07)
[2018-03-03] MEDS: *HR* OxyCODONE/APAP 5/325 TABLET PO PRN (14:41)
[2018-03-03 14:54] LABS: Hematocrit 32.6 % (35.3-44.9); Hemoglobin 10.9 g/dL (11.5-15.4)
--- NOTE | 2018-03-03 17:13 | Anesthesia Evaluation Post Op ---
Date of Encounter: 03/03/18 Time of Encounter: 12:59 Notes: Patient's vital signs have been reviewed. Patient is stable postoperatively and has adequately recovered from anesthesia. Patient is determined to have stable airway patency and respiratory function including respiratory rate and oxygen saturation. Patient has a stable heart rate, blood pressure and adequate hydration. Patients mental status is acceptable. Patients temperature is appropriate. Pain and nausea are adequately controlled. - Discharge PostOp Status: Transfer Patient to floor
[2018-03-03] MEDS ORDERED: 0.9 % Sodium Chloride 500 ML IVC ONE (17:21)
[2018-03-03] MEDS: Gabapentin 300 MG CAPSULE PO SCH ×2 (17:39→20:03)
[2018-03-03] MEDS ORDERED: *HR* Enoxaparin 30 MG/0.3 ML SYRINGE SQ SCH (18:00)
[2018-03-03] MEDS: *HR* Enoxaparin 30 MG/0.3 ML SYRINGE SQ SCH (18:57)
[2018-03-04 00:51] LABS: Hematocrit 23.5 % (35.3-44.9)
[2018-03-04 00:53] LABS: Hemoglobin 7.9 g/dL (11.5-15.4)
[2018-03-04 01:16] LABS: Calcium 7.7 mg/dL (8.6-10.3); Potassium 3.3 mEq/L (3.5-5.1)
[2018-03-04] MEDS: Ringers Solution, Lactated 1,000 ML IVC SCH ×3 (04:50→16:22)
--- NOTE | 2018-03-04 06:43 | Orthopedics Progress Note ---
Date of Encounter: 03/04/18 Time of Encounter: 06:43 - Assessment and Plan (1) Arthritis of knee, left Current Visit: No Status: Chronic (2) Status post total knee replacement, left Current Visit: No Status: Acute (3) Decreased GFR Current Visit: No Status: Chronic (4) HLD (hyperlipidemia) Current Visit: No Status: Chronic Qualifiers: Hyperlipidemia type: mixed hyperlipidemia Qualified Code(s): E78.2 - Mixed hyperlipidemia (5) Hypertension Current Visit: No Status: Chronic Qualifiers: Hypertension type: essential hypertension Qualified Code(s): I10 - Essential (primary) hypertension (6) YADY (obstructive sleep apnea) Current Visit: No Status: Chronic (7) Seizure disorder Current Visit: No Status: Chronic Subjective Interval history: Patient was seen this morning doing well without complaints. Afebrile vital signs stable. Operative extremity: Neurovascularly intact Dressing clean dry and intact Calves nontender Assessment and plan: Continue with postoperative care Hematocrit 23 transfuse 2 units Objective Vital signs: Vital Signs Temp Pulse Resp BP Pulse Ox 03/04/18 05:14 81 16 106/61 03/03/18 22:40 97.5 F L 86 16 90/56 98 03/03/18 20:12 97 03/03/18 18:34 97.7 F 67 16 104/50 99 03/03/18 17:30 97.9 F 68 98/63 100 03/03/18 16:07 97.7 F 65 14 80/49 98 03/03/18 14:25 97.6 F 60 12 117/68 98 03/03/18 13:50 61 118/61 99 03/03/18 13:20 60 108/52 96 03/03/18 13:03 97.5 F L 58 14 128/71 98 03/03/18 12:53 60 14 126/62 98 03/03/18 12:43 58 16 123/55 97 03/03/18 12:33 97.5 F L 64 15 129/60 100 03/03/18 11:07 59 16 118/62 97 03/03/18 10:53 60 18 136/87 100 03/03/18 09:39 98.6 F 62 18 120/67 98 Intake and Output 03/03/18 03/03/18 03/04/18 15:59 23:59 07:59 Intake Total 20 / 20 340 / 340 100 / 100 Output Total 200 / 200 Balance -180 / -180 340 / 340 100 / 100 Intake: IV Fluids 20 / 20 100 / 100 100 / 100 Ancef Syringe 2,000 MG/20 ML 2, 20 / 20 000 mg In 20 ml @ 200 mls/hr IVPB PREOP ONE Rx#:[id number] Ancef 2,000 MG In 0.9 % Sodium 100 / 100 100 / 100 Chloride 100 ML @ 200 mls/hr IVPB Q8HR [facility] Rx#:[id number] Oral 240 / 240 Output: Estimated Blood Loss 200 / 200 Other: Meal Dinner Percent of Meal Consumed 80% # Voids 1 Weight 64.41 kg - Labs CBC & BMP: 03/04/18 00:23 03/04/18 00:23 Labs: Abnormal lab results Hgb 7.9 g/dL (11.5-15.4) L D 03/04/18 00:23 Hct 23.5 % (35.3-44.9) L 03/04/18 00:23 Potassium 3.3 mEq/L (3.5-5.1) L 03/04/18 00:23 Chloride 110 mEq/L (98-107) H 03/04/18 00:23 Carbon Dioxide 22 mEq/L (23-29) L 03/04/18 00:23 Creatinine 1.44 mg/dL (0.60-1.20) H 03/04/18 00:23 Est GFR ( Amer) 43 (> 60) L 03/04/18 00:23 Est GFR (Non-Af Amer) 36 (> 60) L 03/04/18 00:23 Glucose 151 mg/dL (70-105) H 03/04/18 00:23 Calcium 7.7 mg/dL (8.6-10.3) L 03/04/18 00:23 - VTE Documentation of Mechanical Device: Venous foot pump, device Consult Discharge Plan - Plan Referrals: Benjamin Licona CNP [Primary Care Provider] -
[2018-03-04] MEDS ORDERED: Furosemide 20 MG/2 ML VIAL IVP PRN (06:45)
[2018-03-04] MEDS ORDERED: 0.9 % Sodium Chloride 250 ML ONE ×2 (08:21→12:48)
[2018-03-04] MEDS: Gabapentin 300 MG CAPSULE PO SCH ×3 (08:36→20:41)
[2018-03-04] MEDS: Venlafaxine XR (24 HR) 75 MG CAP.ER.24H PO SCH (08:37)
[2018-03-04] MEDS: Loratadine 10 MG TABLET PO SCH (08:37)
[2018-03-04] MEDS: Aspirin Enteric Coated 81 MG Tablet PO SCH (08:37)
[2018-03-04] MEDS: Cholecalciferol (D-3) 1,000 UNIT TABLET PO SCH (08:37)
[2018-03-04] MEDS: Lisinopril 20 MG TABLET PO SCH (08:38)
[2018-03-04] MEDS: *HR* Enoxaparin 30 MG/0.3 ML SYRINGE SQ SCH (16:47)
--- NOTE | 2018-03-04 20:46 | Event Note ---
Date of Encounter: 03/04/18 Time of Encounter: 12:30 PCR - POD#1 s/p left TKR robotic 03/03/18 Patient seen at bedside, without complaints other than tiredness. A&O x 3 Afebrile, vital signs stable. Dressings intact with minimal drainage no calf tenderness to palpation Labs reviewed. H/H - decreased to 7.9/23.5 - will receive 2 units RBC today and then will recheck tomorrow. K 3.3, will continue to monitor, if drops lower tomorrow then will supplement. Will continue fluid hydration for kidney function - Cr 1.44, GFR 36 Pain control: adequate Participating in PT. All questions and concerns addressed. Educated on use of incentive spirometer. Encouraged ambulation and proper hydration. Patient educated on post-operative restrictions and post-operative care. Assessment and plan: Continue with postoperative care Discharge plan: HH pending labs improving after transfusion
[2018-03-04] MEDS: *HR* OxyCODONE/APAP 5/325 TABLET PO PRN (21:07)
--- NOTE | 2018-03-04 22:01 | Physician Discharge Referral ---
Home Health/Hosp Referral Info Transfer to: Home Health Attending Provider: Dr Lizama - Diagnosis (1) Status post total knee replacement, left Priority: Primary Status: Acute (2) Aseptic loosening of prosthetic knee Priority: Secondary Status: Acute (3) Arthritis of knee, left Priority: Secondary Status: Chronic (4) Decreased GFR Priority: Secondary Status: Chronic (5) HLD (hyperlipidemia) Priority: Secondary Status: Chronic (6) Hypertension Priority: Secondary Status: Chronic (7) YADY (obstructive sleep apnea) Priority: Secondary Status: Chronic (8) Seizure disorder Priority: Secondary Status: Chronic (9) Seizures Priority: Secondary Status: Chronic - Respiratory Orders Smoking Cessation: Smoking cessation has been advised. For more information, call the [employer] Tobacco Quit Line at 7-643-NWFU-NOW. - Diet/Nutrition Diet/Nutrition Orders: Regular - Activity Activity Orders: Ambulate - Services Needed Following services are medically necessary services: Physical Therapy, Occupational Therapy Other Treatments: Opsite dressing, leave intact until first post-operative visit. If dressing becomes >50% saturated, contact office, remove dressing and place appropriate dressing in its place. Do not allow for dressing to get wet. Zipline/[place] in place, plan to remove at post-operative day #14-16. Total Joint Precautions x 6 weeks Apply cold therapy wrap 3-6x/day for 20 minutes at a time. Encourage ambulation throughout the day Use Incentive spirometer 10x/hour. Elevate affected extremity above heart as tolerated. Brace: Wear knee immobilizer at night x 2 weeks. - Transfer Medications Home Medications: Atorvastatin [Lipitor] 40 mg PO HS 11/23/16 [History] Esomeprazole Magnesium [Nexium] 40 mg PO DAILY 11/23/16 [History] Gabapentin [Neurontin] 300 mg PO TID 11/23/16 [History] Lisinopril [Zestril] 20 mg PO DAILY 11/23/16 [History] Loratadine [Claritin] 10 mg PO DAILY 11/23/16 [History] Metoprolol [Lopressor] 12.5 mg PO BID 11/23/16 [History] Montelukast [Singulair] 10 mg PO DAILY 11/23/16 [History] Phenytoin ER [Dilantin ER] 100 mg PO TID 11/23/16 [History] Potassium Chloride [K-Tab ER] 20 meq PO DAILY 11/23/16 [History] Triamterene/HCTZ 37.5/25mg [Dyazide] 1 each PO DAILY 11/23/16 [History] Venlafaxine XR (24 HR) [Effexor XR] 75 mg PO DAILY 11/23/16 [History] Aspirin Enteric Coated [Aspirin EC] 325 mg PO BID #20 tablet. 03/02/18 [Rx] OxyCODONE Immed Rel [Roxicodone 5 MG] 5 mg PO Q6H PRN 7 Days #28 tablet [Rx] Allopurinol [Zyloprim 100 MG] 100 mg PO DAILY 03/03/18 [History] Aspirin [Lo-Dose Aspirin EC] 81 mg PO DAILY 03/03/18 [History] Cholecalciferol (D-3) [Vitamin D] 1,000 unit PO DAILY 03/03/18 [History] Allergies/Adverse Reactions: 3 Allergy/AdvReac Type Severity Reaction Status Date / Time acetaminophen AdvReac Weakness Verified 03/03/18 09:55 [From Darvocet-N 100] propoxyphene AdvReac Weakness Verified 03/03/18 09:55 [From Darvocet-N 100] Certification: Further, I certify that my clinical findings support that this patient is homebound (i.e. absences from home require considerable and taxing effort and are for medical reasons or voodoo services or infrequently or short duration when for other reasons) because: Homebound Reason: Post-surgery restriction and or conditions limit ability to leave home Attestation: My signature below is to certify that this patient is under my care and that I, or nurse practitioner, or a physician household assistant working with me, has a face-to- face encounter with this patient.
[2018-03-05 02:36] LABS: Hematocrit 27.6 % (35.3-44.9)
[2018-03-05 02:40] LABS: Hemoglobin 9.6 g/dL (11.5-15.4)
[2018-03-05 02:54] LABS: Calcium 7.9 mg/dL (8.6-10.3)
--- NOTE | 2018-03-05 06:52 | Orthopedics Progress Note ---
Date of Encounter: 03/05/18 Time of Encounter: 06:50 - Assessment and Plan (1) Arthritis of knee, left Current Visit: No Status: Chronic (2) Status post total knee replacement, left Current Visit: No Status: Acute (3) Decreased GFR Current Visit: No Status: Chronic (4) HLD (hyperlipidemia) Current Visit: No Status: Chronic Qualifiers: Hyperlipidemia type: mixed hyperlipidemia Qualified Code(s): E78.2 - Mixed hyperlipidemia (5) Hypertension Current Visit: No Status: Chronic Qualifiers: Hypertension type: essential hypertension Qualified Code(s): I10 - Essential (primary) hypertension (6) YADY (obstructive sleep apnea) Current Visit: No Status: Chronic (7) Seizure disorder Current Visit: No Status: Chronic (8) Hypokalemia Current Visit: Yes Status: Acute (9) Acute blood loss anemia Current Visit: Yes Status: Acute Subjective Interval history: Patient was seen this morning doing well without complaints. Afebrile vital signs stable. Operative extremity: Neurovascularly intact Dressing clean dry and intact Calves nontender Assessment and plan: Continue with postoperative care Hematocrit 27 stable for dc Objective Vital signs: Vital Signs Temp Pulse Resp BP Pulse Ox 03/05/18 03:11 98.9 F 79 18 134/68 96 03/04/18 22:57 98.9 F 70 18 124/66 94 03/04/18 18:46 99.0 F 83 16 145/63 95 03/04/18 15:58 98.2 F 79 17 139/69 97 03/04/18 15:07 98.8 F 78 14 128/63 98 03/04/18 13:20 97.6 F 80 14 128/71 97 03/04/18 13:05 98.4 F 76 14 106/56 03/04/18 12:35 98.5 F 76 18 132/72 97 03/04/18 08:42 96 03/04/18 08:41 98.0 F 71 14 92/45 97 03/04/18 08:26 98.7 F 80 14 84/49 96 Intake and Output 03/04/18 03/04/18 03/05/18 15:59 23:59 07:59 Intake Total 906 / 906 240 / 240 Balance 906 / 906 240 / 240 Intake: Oral 360 / 360 240 / 240 Blood Product 546 / 546 Rbcs Leuko Poor As-1 Unit 246 / 246 [id number] Rbcs Leuko Poor As-1 Unit 300 / 300 [id number] Other: Meal Lunch Lunch Percent of Meal Consumed 20% 50% # Voids 2 - Labs CBC & BMP: 03/05/18 01:48 03/05/18 01:48 Labs: Abnormal lab results Hgb 9.6 g/dL (11.5-15.4) L D 03/05/18 01:48 Hct 27.6 % (35.3-44.9) L 03/05/18 01:48 Potassium 3.0 mEq/L (3.5-5.1) L 03/05/18 01:48 Chloride 109 mEq/L (98-107) H 03/05/18 01:48 Est GFR ( Amer) 58 (> 60) L 03/05/18 01:48 Est GFR (Non-Af Amer) 48 (> 60) L 03/05/18 01:48 Glucose 119 mg/dL (70-105) H 03/05/18 01:48 Calcium 7.9 mg/dL (8.6-10.3) L 03/05/18 01:48 - VTE Documentation of Mechanical Device: Venous foot pump, device Consult Discharge Plan - Plan Referrals: Benjamin Licona CNP [Primary Care Provider] -
[2018-03-05] MEDS: *HR* OxyCODONE/APAP 5/325 TABLET PO PRN (07:18)
[2018-03-05] MEDS: Loratadine 10 MG TABLET PO SCH (08:51)
[2018-03-05] MEDS: Cholecalciferol (D-3) 1,000 UNIT TABLET PO SCH (08:51)
[2018-03-05] MEDS: Gabapentin 300 MG CAPSULE PO SCH ×2 (08:51→14:26)
[2018-03-05] MEDS: Venlafaxine XR (24 HR) 75 MG CAP.ER.24H PO SCH (08:51)
[2018-03-05] MEDS: Aspirin Enteric Coated 81 MG Tablet PO SCH (08:52)
[2018-03-05] MEDS: Lisinopril 20 MG TABLET PO SCH (08:52)
[2018-03-05 11:58] VITALS: BP 146/70
== END 2018-03-05 16:01 | disposition home health service (06) | DRG 470 ==
LOC: SAMDAY 09:06 → 3NENU 14:34
PROVIDERS: ADMIT Orthopaedic Surgery; ATTEND Orthopaedic Surgery